=== PATIENT | female | born 1985 | race Caucasian/White ===

== ENCOUNTER 2016-10-11 17:06 | Emergency (ER) | payer OTHER ==
[2016-10-11 17:12] VITALS: BP 124/76; PULSE 83; TEMP 98; BMI 22.8
--- NOTE | 2016-10-11 17:13 | PDOC ---
Rapid Medical Evaluation Chief Complaint: Urinary Problem Time Seen by Provider: 10/11/16 17:11 Medical Evaluation: Allergies Allergy/AdvReac Type Severity Reaction Status Date / Time No Known Allergies Allergy Verified 05/31/15 12:04 Vital Signs Temp Pulse Resp BP Pulse Ox 98.0 F 83 6 L 124/76 99 10/11/16 17:08 10/11/16 17:08 10/11/16 17:08 10/11/16 17:08 10/11/16 17:08 10/11/16 17:11 I have performed a brief in-person evaluation of this patient. o The patient presents with a chief complaint of: Urinary pain and urgency denies recent new sexual activity, no vaginal pain or discharge. o Pertinent physical exam findings: Mid Lower abdominal pain, no rebound. o I have ordered the following:UA, C&S, urine preg o The patient will proceed to the ED for further evaluation.
--- NOTE | 2016-10-11 17:39 | PDOC ---
History of Present Illness - General Chief Complaint: Urinary Problem Stated Complaint: URINARY PROBLEM Time Seen by Provider: 10/11/16 17:11 History Source: Patient Exam Limitations: No Limitations - History of Present Illness Initial Comments: 10/11/16 17:38 My Chief complaint: Urinary frequency, urgency today, dysuraia, denies any epigastric pain History of present illness: She is a 30-year-old female with no significant medical history here today complaining of urinary frequency and urgency with dysuria today however patient reports that she had mid epigastric tenderness that started Monday that was intermittent has not had today. Patient saw her [employer] provider Dr. Coffey 1 week ago. Patient denies any back pain nausea, vomiting, vaginal discharge or back pain. 10/11/16 17:53 10/11/16 18:03 10/11/16 18:08 Timing/Duration: changing over time Severity: mild Associated Symptoms: reports: other (urinary dysuria, frequency, urgency) Past History - Past Medical History Allergies/Adverse Reactions: Allergies Allergy/AdvReac Type Severity Reaction Status Date / Time No Known Allergies Allergy Verified 10/11/16 17:12 Home Medications: Ambulatory Orders Nitrofurantoin Monohyd/M-Cryst [Macrobid -] 100 mg PO BID #14 capsule MDD 2 Phenazopyridine HCl [Pyridium] 200 mg PO TID #6 tablet 10/11/16 Other medical history: PATIENT DENIES MEDICAL HISTORY - Psycho/Social/Smoking Cessation Hx Anxiety: No Suicidal Ideation: No Smoking Status: No Smoking History: Never smoked Number of Cigarettes Smoked Daily: 0 Hx Alcohol Use: Yes (OCCASIONHALLY) Drug/Substance Use Hx: No Substance Use Type: Alcohol Review of Systems - Review of Systems Able to Perform ROS?: Yes Constitutional: No: Symptoms Reported HEENTM: No: Symptoms Reported Respiratory: No: Symptoms reported Cardiac (ROS): No: Symptoms Reported ABD/GI: Yes: Other (mid epigastric discomfort for few days, none today ). No: Abd. Pain w/ defecation, Blood Streaked Bowels, Constipated, Diarrhea, Difficulty Swallowing, Nausea, Poor Appetite, Poor Fluid Intake, Vomiting, Indigestion, Abdominal cramping, Tarry Stools : Yes: Dysuria, Frequency, Urgency. No: Flank Pain, Hematuria Musculoskeletal: No: Symptoms Reported Integumentary: No: Symptoms Reported Neurological: No: Symptoms reported *Physical Exam - Vital Signs Last Vital Signs Temp Pulse Resp BP Pulse Ox 98.0 F 83 6 L 124/76 99 10/11/16 17:08 10/11/16 17:08 10/11/16 17:08 10/11/16 17:08 10/11/16 17:08 - Physical Exam General Appearance: Yes: Appropriately Dressed Respiratory/Chest: positive: Lungs Clear, Normal Breath Sounds. negative: Chest Tender, Respiratory Distress Cardiovascular: positive: Regular Rhythm, Regular Rate, S1, S2 Gastrointestinal/Abdominal: positive: Normal Bowel Sounds, Soft. negative: Tender, Organomegaly, Distended, Guarding, Rebound, Tenderness, Hepatomegaly, Spleenomegaly Musculoskeletal: positive: Normal Inspection. negative: CVA Tenderness, CVA Tenderness (R), CVA Tenderness (L) Integumentary: positive: Normal Color Neurologic: positive: Alert, Normal Response, Responsive Medical Decision Making - Medical Decision Making 10/11/16 17:59 ` 10/11/16 18:03 10/11/16 18:08 She is a 30-year-old female with no significant medical history here today complaining of urinary frequency and urgency with dysuria today however patient reports that she had mid epigastric tenderness that started Monday that was intermittent has not had today. Patient saw her [employer] provider Dr. Coffey 1 week ago, she did not have any STD testing. Patient denies any back pain nausea , vomiting, vaginal discharge or back pain. Pt.is on Loestrin. Patient has been with the same partner for 7 years they do not use condoms. r/o UTI acute cystitis PLAN: urine hcg urinalysis urine C & S chlamydia/GC amplification 10/11/16 19:46 Laboratory Tests 10/11/16 17:30 Urine Color Ltyellow Urine Appearance Cloudy Urine pH 6.0 Ur Specific [place] Pending Urine Protein 1+ H Urine Glucose (UA) Negative Urine Ketones Negative Urine Blood 3+ H Urine Nitrite Negative Urine Bilirubin Negative Urine Urobilinogen Negative Ur Leukocyte Esterase 3+ H Urine RBC 472 Urine WBC 158 Ur Epithelial Cells Many Urine Bacteria Rare Urine Mucus Rare Urine HCG, Qual Negative 10/11/16 19:47 will try will macrobid 100 mg bid for 7 days pyridium 200 mg tid for 2 days *DC/Admit/Observation/Transfer Diagnosis at time of Disposition: Cystitis - Discharge Dispostion Disposition: HOME Condition at time of disposition: Stable - Patient Instructions Additional Instructions: Drink A lot a fluids especially cranberry juice Follow-up with your primary care provider at end of treatment for repeat urinalysis and culture return to emergency room if symptoms worsen any fever, back pain or nausea or vomiting or any other symptoms develop Patient voiced understanding of discharge instructions and all questions were answered
[2016-10-11 19:31] LABS: URINE APPEARANCE CLOUDY; URINE BILIRUBIN NEGATIVE (NEGATIVE); URINE COLOR LTYELLOW; URINE GLUCOSE (UA) NEGATIVE (NEGATIVE); URINE KETONE NEGATIVE (NEGATIVE); URINE NITRITE NEGATIVE (NEGATIVE); URINE UROBILINOGEN NEGATIVE E.U./dl (0.2-1.0)
[2016-10-11 19:33] LABS: URINE BLOOD 3+ (NEGATIVE); URINE LEUK ESTERASE 3+ (NEGATIVE); URINE PROTEIN 1+ (NEGATIVE)
[2016-10-11 19:36] LABS: URINE BACTERIA RARE /hpf (NONE SEEN); URINE MUCUS RARE; URINE RBC 472 /hpf (0-3); URINE WBC 158 /hpf (3-5)
== END 2016-10-11 20:40 | disposition home or self-care (01) ==
LOC: JERFT 17:06
DX: N30.90 Cystitis, unspecified without hematuria (principal)
CPT/HCPCS: 36415; 81003; 81015; 84703; 87086; 87186; 87491; 87591; 99281-25

== ENCOUNTER 2022-12-24 14:12 | Emergency (ER) | payer OTHER ==
[2022-12-24 14:26] VITALS: BP 122/84; RESP 20; TEMP 98.7; BMI 24.7
[2022-12-24] MEDS ORDERED: ONDANSETRON *ODT* 4 MG TABLET SL ONE (14:57)
[2022-12-24 15:04] VITALS: PULSE 105
[2022-12-24] MEDS ORDERED: ONDANSETRON *ODT* 4 MG TABLET ONE (15:09)
== END 2022-12-24 15:10 | disposition home or self-care (01) ==
LOC: JER 14:12
DX: R11.10 Vomiting, unspecified (principal); R19.7 Diarrhea, unspecified; K52.9 Noninfective gastroenteritis and colitis, unspecified
CPT/HCPCS: 99283-25; Q0162

== ENCOUNTER 2023-07-05 12:30 | Emergency (ER) | payer OTHER ==
[2023-07-05 12:43] VITALS: BP 117/71; PULSE 88; RESP 17; TEMP 98.2; BMI 24.7
[2023-07-05] MEDS ORDERED: ACETAMINOPHEN INJECTION 100 ML IVPB ONE ×2 (13:59→16:45)
[2023-07-05] MEDS ORDERED: ONDANSETRON 4 MG/2 ML VIAL ONE (13:59)
[2023-07-05 14:43] LABS: BASO % 0.2 % (0-2.0); EOS % 0.2 % (0-4.5); HEMATOCRIT 38.8 % (32.4-45.2); HEMOGLOBIN 13.3 GM/dL (10.7-15.3); MCH 30.2 pg (25.7-33.7); MCHC 34.4 g/dl (32.0-36.0); MEAN CELL VOLUME 87.9 fl (80-96); MEAN PLT VOLUME 7.2 fl (7.5-11.1); MONO % 4.7 % (3.8-10.2); NEUT % 82.9 % (42.8-82.8); PLATELET COUNT 283 10^3/uL (134-434); RBC 4.42 M/mm3 (3.60-5.2); RDW 13.2 % (11.6-15.6); WHITE BLOOD COUNT 9.3 K/mm3 (4.0-10.0)
[2023-07-05] MEDS: ONDANSETRON 4 MG/2 ML VIAL IVPUSH ONE (14:45)
[2023-07-05] MEDS: LACTATED RINGERS SOLUTION 1000 ML INFUS.BAG IV ONE (14:45)
[2023-07-05 14:51] LABS: INR 1.02 (0.83-1.09); PROTHROMBIN TIME (PATIENT) 11.8 SEC (9.7-13.0)
[2023-07-05 14:54] LABS: ACTIVATED PTT 29.5 SECONDS (25.2-36.5); POTASSIUM 3.7 mmol/L (3.5-5.1)
[2023-07-05 14:56] LABS: CALCIUM 9.4 mg/dL (8.5-10.1)
[2023-07-05 14:57] LABS: ALBUMIN 4.2 g/dl (3.4-5.0); BLOOD UREA NITROGEN 14.1 mg/dL (7-18); MAGNESIUM 2.3 mg/dL (1.8-2.4)
[2023-07-05 15:00] LABS: CREATININE 0.7 mg/dL (0.55-1.3)
[2023-07-05 15:01] LABS: BILIRUBIN,TOTAL 1.1 mg/dL (0.2-1)
[2023-07-05 15:02] LABS: TOT PROT 8.4 g/dl (6.4-8.2)
[2023-07-05 15:59] LABS: EPI CELLS 25 /uL (0-25.1); HYALINE CASTS 3 /uL (0-3.1); PH,URINE 6.5 (5.0-8.0); URINE APPEARANCE CLOUDY; URINE BACTERIA 72 /uL (0-1359); URINE BILIRUBIN NEGATIVE (NEGATIVE); URINE COLOR YELLOW; URINE GLUCOSE (UA) NEGATIVE (NEGATIVE); URINE KETONE 2+ (NEGATIVE); URINE LEUK ESTERASE 3+ (NEGATIVE); URINE NITRITE NEGATIVE (NEGATIVE); URINE PROTEIN NEGATIVE (NEGATIVE); URINE UROBILINOGEN 0.2 mg/dL (0.2-1.0); URINE WBC 569 /uL (0-25.8)
[2023-07-05 16:13] LABS: URINE RBC 136.3 /uL (0-23.9); YEAST FEW (NEGATIVE)
[2023-07-05] MEDS ORDERED: CEFTRIAXONE 1 GM/50 ML BAG ONE (16:45)
[2023-07-05] MEDS: CEFTRIAXONE 1,000 MG in DEXTROSE 5%-WATER - 50 ML IVPB ONE (16:55)
[2023-07-05] MEDS: ACETAMINOPHEN 1000 MG/100 ML BAG IVPB ONE (16:55)
== END 2023-07-05 18:21 | disposition home or self-care (01) ==
LOC: JER 12:30
PROC: 3E03329 Introduction of Other Anti-infective into Peripheral Vein, Percutaneous Approach (ICD-10-PCS; principal; 2023-07-05)
PROC: 3E033GC Introduction of Other Therapeutic Substance into Peripheral Vein, Percutaneous Approach (ICD-10-PCS; 2023-07-05)
PROC: 3E033GC Introduction of Other Therapeutic Substance into Peripheral Vein, Percutaneous Approach (ICD-10-PCS; 2023-07-05)
DX: R10.11 Right upper quadrant pain (principal); R11.2 Nausea with vomiting, unspecified; R50.9 Fever, unspecified; N12 Tubulo-interstitial nephritis, not specified as acute or chronic
CPT/HCPCS: 36415; 74176-TC; 76705-TC; 80053; 81003; 83690; 83735; 84703; 85025; 85610; 85730; 86850; 86900; 86901; 87086; 99284-25; J0131

== ENCOUNTER 2024-09-01 18:07 | Inpatient (IN) | payer OTHER ==
[2024-09-01 20:09] LABS: ABSOLUTE IMMATURE GRANULOCYTES 0.37 x10^3/uL (0.0-0.031); BASOPHILS # 0.04 x10^3/uL (0.01-0.08); EOSINOPHIL % 0.5 % (0.7-5.8); EOSINOPHILS # 0.05 x10^3/uL (0.04-0.36); HEMATOCRIT 35.2 % (34.1-44.9); MCHC 34.1 g/dl (32.2-35.5); MEAN CELL VOLUME 94.6 fl (79.4-94.8); MEAN PLT VOLUME 9.7 fl (9.4-12.3); MONOCYTE # 0.66 x10^3/uL (0.24-0.86); PLATELET COUNT 225 x10^3/uL (182-369); RDW 13.2 % (12.1-16.8)
[2024-09-01 20:19] LABS: INR 0.9 (0.83-1.09); PROTHROMBIN TIME (PATIENT) 9.9 SEC (9.7-13.0)
[2024-09-01 20:22] LABS: ACTIVATED PTT 23.3 SECONDS (25.2-36.5)
[2024-09-01 20:30] LABS: POTASSIUM 3.8 mmol/L (3.5-5.1)
[2024-09-01] MEDS: LACTATED RINGERS SOLUTION 1,000 ML IV SCH (20:30)
[2024-09-01 20:33] LABS: BLOOD UREA NITROGEN 11.2 mg/dL (7-18); CALCIUM 9.5 mg/dL (8.5-10.1)
[2024-09-01 20:37] LABS: CREATININE 0.5 mg/dL (0.55-1.3)
[2024-09-01 21:36] VITALS: RESP 18
[2024-09-01] MEDS ORDERED: OXYTOCIN 30 UNITS in 0.9% NS 30 UNIT/500 ML INFUS.BAG IVPB ONE (21:41)
[2024-09-01] MEDS: OXYTOCIN 30 UNITS in 0.9% NS 30 UNIT/500 ML INFUS.BAG IVPB SCH (21:45)
[2024-09-01 21:52] VITALS: BMI 31.2
[2024-09-01] MEDS ORDERED: OXYTOCIN 20 UNITS in 0.9% NS 20 UNIT/1,000 ML INFUS.BAG IV ONE (23:31)
[2024-09-01] MEDS: PROMETHAZINE HCL 25 MG/1 ML VIAL IVPB PRN (23:40)
[2024-09-01] MEDS: BUTORPHANOL TARTRATE 1 MG/ML VIAL IVPB ONE (23:40)
[2024-09-02] MEDS: OXYTOCIN 20 UNITS in 0.9% NS 20 UNIT/1,000 ML INFUS.BAG IV SCH (01:05)
[2024-09-02] MEDS ORDERED: WITCH HAZEL 50% (TUCKS) 40 PAD/JAR PAD TP PRN (01:18)
[2024-09-02] MEDS ORDERED: BISACODYL 10 MG SUPP.RECT RC PRN (01:18)
[2024-09-02] MEDS ORDERED: BENZOCAINE 28 GM HEMORRHOIDAL OINTMENT TP PRN (01:18)
[2024-09-02] MEDS ORDERED: BENZOCAINE 20% 57 GM BOTTLE TP PRN (01:18)
[2024-09-02] MEDS ORDERED: METHYLERGONOVINE MALEATE 0.2 MG/1 ML AMP IM PRN (01:18)
[2024-09-02] MEDS ORDERED: ACETAMINOPHEN 325 MG TABLET (FP) PO PRN (01:18)
[2024-09-02] MEDS: BUTORPHANOL TARTRATE 1 MG/ML VIAL IVPB ONE (02:51)
[2024-09-02] MEDS: IBUPROFEN 600 MG TABLET (FP) PO PRN (08:08)
[2024-09-02] MEDS: FERROUS SO4 325 MG TABLET (FP) PO SCH (08:08)
[2024-09-02] MEDS: PRENATAL VITAMINS W/ FOLIC ACID TABLET (FP) PO SCH (09:45)
[2024-09-03 06:56] LABS: HEMATOCRIT 33.3 % (34.1-44.9); HEMOGLOBIN 10.9 g/dL (11.2-15.7); MCHC 32.7 g/dl (32.2-35.5); MEAN CELL VOLUME 95.7 fl (79.4-94.8); MEAN PLT VOLUME 9.4 fl (9.4-12.3); PLATELET COUNT 203 x10^3/uL (182-369); RDW 13.4 % (12.1-16.8)
[2024-09-03 09:02] VITALS: BP 120/80; PULSE 70; TEMP 97.5
[2024-09-03] MEDS ORDERED: SENNOSIDES/DOCUSATE COMBO (SENNA PLUS) TABLET (UD) PO PRN (22:00)
[2024-09-09 10:44] LABS: POC NITRAZINE POS
== END 2024-09-03 18:20 | disposition home or self-care (01) | DRG 807 ==
LOC: JDEL 18:07 → JLDR 19:30 → J3W 09-02 04:18
PROVIDERS: ADMIT Obstetrics & Gynecology; ATTEND Obstetrics & Gynecology
PROC: 10E0XZZ Delivery of Products of Conception, External Approach (ICD-10-PCS; principal; 2024-09-02)
DX: O42.02 Full-term premature rupture of membranes, onset of labor within 24 hours of rupture (principal); Z37.0 Single live birth; Z3A.38 38 weeks gestation of pregnancy
CPT/HCPCS: 36415; 59409; 80048; 83986-QW; 85025; 85610; 85730; 86780; 86850; 86900; 86901